=== PATIENT | male | born 1965 | race Caucasian/White ===

== ENCOUNTER 2020-07-05 10:27 | Emergency (ER) | payer OTHER ==
[~2020-07-05] VITALS: Ht 162.6 cm; Wt 74.8 kg
[2020-07-05 10:34] VITALS: BP 130/78
--- NOTE | 2020-07-05 10:38 | NUR ---
C/O COUGH, DIFICULTY BREATHING, INTERMITENT CP ,FEVER,BLANCAS, BODY ACHES, N/V X 1 WEEK. COVID TESTED + 1 WEEK AGO. PMH: DENIES
--- NOTE | 2020-07-05 11:20 | NUR ---
PT MOVED TO BED 9.
[2020-07-05 11:24] LABS: BASOPHILS % (AUTO) 0.1 % (0.0-2.0); EOSINOPHILS % (AUTO) 0.4 % (0.0-4.0); HEMATOCRIT 41.4 % (36-52); HEMOGLOBIN 14.1 g/dL (12.0-18.0); LYMPHOCYTES # (AUTO) 1.2 K/uL (2.0-11.5); LYMPHOCYTES % (AUTO) 14.5 % (20.5-51.1); MEAN CORPUSCULAR HEMOGLOBIN 31 pg (27-31); MEAN CORPUSCULAR HGB CONC 34 g/dL (33-37); MONOCYTES # (AUTO) 0.5 K/uL (0.8-1.0); MONOCYTES % (AUTO) 5.8 % (1.7-9.3); NEUTROPHILS # (AUTO) 6.4 K/uL (1.8-7.7); NEUTROPHILS % (AUTO) 79.2 % (42.2-75.2); PLATELET COUNT (AUTO) 213 K/uL (140-450); RED CELL DISTRIBUTION WIDTH 13.3 % (11.6-13.7); WHITE BLOOD COUNT (AUTO) 8.1 K/uL (4.8-10.8)
[2020-07-05 11:39] LABS: ALBUMIN 3.6 g/dL (3.4-5.0); ANION GAP 11.5 (8-16); CARBON DIOXIDE 28.8 mmol/L (21-32); CREATININE 1.1 mg/dL (0.6-1.3); POTASSIUM 4.3 mmol/L (3.5-5.1); TOTAL BILIRUBIN 0.7 mg/dL (0.0-1.0)
--- NOTE | 2020-07-05 12:26 | NUR ---
RT AT BEDSIDE FOR ABG DRAW.
[2020-07-05] MEDS ORDERED: AZITHROMYCIN 500 MG in DEXTROSE 5% 250 ML IV ONE (13:15)
[2020-07-05] MEDS ORDERED: cefTRIAXone 1,000 MG VIAL ONE (13:47)
[2020-07-05] MEDS ORDERED: AZITHROMYCIN 500 MG INJ VIAL IV ONE (13:47)
[2020-07-05 14:25] VITALS: BP 112/75
--- NOTE | 2020-07-05 15:53 | NUR ---
Patient discharged with v/s stable. Written and verbal after care instructions given and explained. Patient alert, oriented and verbalized understanding of instructions. Ambulatory with steady gait. All questions addressed prior to discharge. ID band removed. Patient advised to follow up with PMD. Rx of azithromycin, amoxicillin, dexamethasone given. Patient educated on indication of medication including possible reaction and side effects. Opportunity to ask questions provided and answered.
== END 2020-07-05 15:53 | disposition home or self-care (01) ==
LOC: MED 10:27
DX: U07.1 COVID-19 (principal); J12.82 Pneumonia due to coronavirus disease 2019
CPT/HCPCS: 36415; 36600; 71045; 80053; 82803; 83880; 84484; 85025; 87040; 93005; 96365; 96367; 99285; J0456; J0696